=== PATIENT | female | born 1950 | race Caucasian/White ===

== ENCOUNTER → 2020-07-01 | Outpatient (CLI) | payer MEDICARE ==
[~2020-07-01] MED LIST: CALCIUM500 MG PO; CENTRUM SILVER1 EAC3 PO; FISH OIL300 MG PO; IBUPROFEN400 MG PO; LISINOPRIL PO; PRILOSEC OTC20 MG PO; REGADENOSON 0.4 MG/5 ML SYR IV ONE; TRAMADOL PO; TYLENOL PO; ULTRAM50 MG PO; VITAMIN D31000 UNI1 PO
--- NOTE | 2020-07-08 14:30 | Myoview Stress Test ---
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 FINDINGS: The patient was stressed using 1 minute intravenous infusion of Lexiscan. Rest and stress Myoview imaging was obtained. Rest images show mild decrease and tracer uptake in the LV apex, similarly findings noted on the stress imaging. Normal contractility of the left ventricle. CONCLUSIONS: 1. Normal Lexiscan nuclear stress test showing mild apical attenuation artifact, however, a small area of nontransmural scar cannot be excluded. 2. Left ventricular ejection fraction 83%. MD FIDELINA Lopes/JANETH /[id number]
== END ==
LOC: NM 10:53
PROVIDERS: ATTEND Internal Medicine
DX: R07.9 Chest pain, unspecified (principal)
CPT/HCPCS: 78452; 93017; A9502; J2785

== ENCOUNTER → 2020-07-25 | Day surgery (SDC) | payer MEDICARE, OTHER ==
[2020-07-21 13:02] LABS: BASOPHILS % 0.5 % (0.0-1.0); EOSINOPHILS % 0.7 % (0.0-6.0); HEMATOCRIT 42.4 % (34.2-44.1); HEMOGLOBIN 14.2 g/dL (12.0-16.0); LYMPHOCYTES # (AUTO) 1.7 (1.0-3.2); LYMPHOCYTES % 28.5 % (18.0-39.1); MEAN CORPUSCULAR HEMOGLOBIN 33.6 pg (28-32); MEAN CORPUSCULAR HGB CONC 33.5 g/dL (31-35); MEAN CORPUSCULAR VOLUME 100.2 fL (81-99); MONOCYTES # (AUTO) 0.5 (0.2-0.8); MONOCYTES % 8.7 % (4.4-11.3); NEUTROPHILS # (AUTO) 3.6 (2.1-6.9); NEUTROPHILS % 61.3 % (38.7-80.0); PLATELET COUNT 204 x10e3/uL (140-360); RED BLOOD COUNT 4.23 x10e6/uL (3.6-5.1); RED CELL DISTRIBUTION WIDTH 13.1 % (11.7-14.4)
[2020-07-21 13:12] LABS: INR 0.9; PROTHROMBIN TIME 12.6 seconds (11.9-14.5)
[2020-07-21 13:22] LABS: ALANINE AMINOTRANSFERASE 30 IU/L (0-55); ALBUMIN 4.1 g/dL (3.5-5.0); ALBUMIN/GLOBULIN RATIO 1.6 (0.8-2.0); ALKALINE PHOSPHATASE 112 IU/L (40-150); ANION GAP 13.6 mmol/L (8-16); BLOOD UREA NITROGEN 12 mg/dL (7-26); BUN/CREATININE RATIO 15 (6-25); CARBON DIOXIDE 26 mmol/L (22-29); CHLORIDE 107 mmol/L (98-107); CREATININE, SERUM 0.81 mg/dL (0.57-1.11); EST GLOMERULAR FILTRATION RATE > 60 ML/MIN (60-); GLUCOSE 95 mg/dL (74-118); POTASSIUM 4.6 mmol/L (3.5-5.1); SODIUM 142 mmol/L (136-145)
--- NOTE | 2020-07-23 12:03 | NUR ---
Dr. Ascencio notified of Right lumpectomy with lymph nodes removed so patient does not do lab draws or blood pressure on right arm. Dr. Miguel Ascencio stated ok to continue with right radial access.
[2020-07-25] VITALS (8 sets, daily range): BP systolic 140–169; BP diastolic 60–97
[~2020-07-25] VITALS: Ht 160 cm; Wt 65.8 kg
[~2020-07-25] MED LIST changes: +ACETAMINOPHEN-1 EAC4 PO; +ATORVASTATIN CA20 MG PO; +CLONIDINE HCL0.1 MG PO; +FENTANYL CITRATE/PF 100MCG/2 ML INJ ONE; +GABAPENTIN300 MG PO; +HEPARIN SOD (PORCINE) 1000 UNIT/ML 30ML ONE; +HEPARIN SOD/SOD CHLORIDE 2,000 ML ONE; +HYDROCHLOROTHIA25 MG PO; +IOPAMIDOL 370 MG/ML 200 ML INFUS..BTL INJ ONE; +LIDOCAINE HCL 2% LOCAL 20 ML VIAL ONE; +LISINOPRIL10 MG PO; +METOPROLOL TART25 MG PO; +MIDAZOLAM HCL 2 MG/2 ML VIAL ONE; +NITROGLYCERIN/D5W 200 MCG/ML 250 ML ONE; -REGADENOSON 0.4 MG/5 ML SYR IV ONE; +SODIUM CHLORIDE 0.9% 1000ML 1,000 ML ONE; +VERAPAMIL HCL 2.5 MG/ML 2 ML VIAL ONE
--- NOTE | 2020-07-25 09:36 | NUR ---
0936am RECEIVING NOTE WEB APPLICATIONS ADMINISTRATOR RECOVERY DEPT............................................................... Bedside report received from Sindy CAREY. Identifierx2. Alert oriented and appropriate, PERRLA, respirations even and unlabored to room air. Pulses x4 extremities equal and strong. Pedal pulses PT/DP X4 and marked. Cap fill brisk < 3 sec. rt tr band intact NO gross issues pain,pallor,pressure or dysrhythmia Skin warm and dry integrity appears D/I. IV 20g to left hand presents healthy w/o s/s of infiltration or complaint. Abdomen soft and supple. pt offered toileting, denies need to urinate or defecate. No personal affects with patient. Family XXXXX. Pt and family verbalizes understanding of POC. Called friend ride tack picker at 1230. Ray will arrive at turn around then. Currently w/o complaint of pain or need. ds/rn
--- NOTE | 2020-07-25 11:00 | NUR ---
1100 RADIAL Compression removal: Initial Cuff volume 13 cc 1100 -3cc Removed No hematoma/bleeding noted with normal neurovascular function. 1115 -5 cc Removed No hematoma/ bleeding noted with normal neurovascular function. 1130 -5cc Removed No hematoma/bleeding noted with normal neurovascular function. Air removal completed. Stasis achieved sterile 2x2,Tegaderm, Coban dressing No hematoma, bleeding noted with normal neurovascular function. Pt instructed on POC. Ds/Rn
--- NOTE | 2020-07-25 11:24 | Operative Report ---
DATE OF PROCEDURE: 07/25/2020 SURGEON: Kalin Ascencio MD CARDIOLOGY CATHETERIZATION REPORT. INDICATION FOR PROCEDURE: Chest pain, abnormal stress test. PREPROCEDURE ASSESSMENT: The risks, benefits, and alternatives of treatment were explained to the patient prior to the procedure. Informed consent obtained and documented in the medical record. MEDICATIONS: Please see nursing notes for medications administered. PROCEDURE PERFORMED: 1. Coronary angiography. 2. Left heart catheterization. PROCEDURE DETAILS: The patient was brought to the cardiac catheterization laboratory in a fasting state. Right wrist was prepped and draped in a sterile fashion. A 6-B[place] Slender sheath was inserted in the right radial artery using modified Seldinger technique. Coronary angiography was performed using a 5-[place] radial catheter and XB3.0 guiding catheter. Left heart catheterization was performed using 5-[place] radial catheter. All catheters were removed over wire. There were no immediate complications. Multiple orthogonal views were taken at each coronary artery. Access site was closed using a TR band device. The patient tolerated the procedure well. There were no immediate complications. FINDINGS: Right-dominant system, no significant CAD. Left heart catheterization showed LVEDP of 10 with no gradient across aortic valve. GRAFTS AND IMPLANTS: None. SPECIMEN REMOVED: None. ESTIMATED BLOOD LOSS: Less than 10 mL. COMPLICATIONS: None. FINAL RECOMMENDATIONS: 1. Continue optimal medical therapy and risk factor control. 2. Follow up in clinic in 1 to 2 weeks. Kalin Ascencio MD KVP/MODL /[id number]
--- NOTE | 2020-07-25 12:00 | NUR ---
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 Rt Tr band site assessed for s/s of complication and presecence of hematoma. Skin warm, dry, no discolor, and pulses present. IV removed from left hand. Distal tip appears intact. VS WNL. Pt denies pain, sob, or need at this time. Family at BS. Review of discharge paperwork and follow up instructions. verbalized understanding. Pt to wheelchair and transported to front of hospital. Transferred to private vehicle under own strength w/o incident with DC paperwork in hand. -dada/rn
== END | disposition home or self-care (01) ==
LOC: CATH LAB 07:29
PROVIDERS: ATTEND Internal Medicine
DX: I25.10 Atherosclerotic heart disease of native coronary artery without angina pectoris (principal); R94.39 Abnormal result of other cardiovascular function study; I10 Essential (primary) hypertension; I25.2 Old myocardial infarction; Z01.812 Encounter for preprocedural laboratory examination; Z11.59 Encounter for screening for other viral diseases; Z82.49 Family history of ischemic heart disease and other diseases of the circulatory system
CPT/HCPCS: 36415; 80053; 85025; 85610; 93458; C1769; C1887; J1644; J2001; J2250; J3010; J7030; Q9967; U0002; 99152; 99153